=== PATIENT | male | born 1970 | race Caucasian/White ===

== ENCOUNTER 2017-07-24 11:42 | Emergency (ER) | payer BC ==
[~2017-07-24] VITALS: Ht 182.9 cm; Wt 84.5 kg
--- NOTE | 2017-07-24 11:55 | EKG ---
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
[2017-07-24 12:19] LABS: BASO # 0.1 x10^3/uL (0.0-0.2); BASO % 1 % (0-3); EOS # 0.2 x10^3/uL (0.0-0.7); EOS % 3 % (0-3); HEMATOCRIT 44.4 % (39.0-53.0); HEMOGLOBIN 15.3 g/dL (13.0-17.5); LYMPH # 1.9 x10^3/uL (1.0-4.8); LYMPH % 20 % (24-48); MEAN CORPUSCULAR HEMOGLOBIN 32 pg (25-35); MEAN CORPUSCULAR HGB CONC 35 g/dL (31-37); MEAN CORPUSCULAR VOLUME 92 fL (79-100); MONO # 0.7 x10^3/uL (0.0-1.1); MONO % 7 % (0-9); NEUT # 6.7 x10^3uL (1.8-7.7); NEUT % 70 % (31-73); PLATELET COUNT 207 x10^3/uL (140-400); RED BLOOD COUNT 4.81 x10^6/uL (4.30-5.70); RED CELL DISTRIBUTION WIDTH 13.6 % (11.5-14.5); WHITE BLOOD COUNT 9.6 x10^3/uL (4.0-11.0)
--- NOTE | 2017-07-24 12:20 | RAD ---
PA and lateral chest radiographs 07/24/2017 CLINICAL HISTORY: Shortness of breath. Asthma. Two PA and lateral digital radiographs of the chest were obtained. Comparison study is dated 02/08/2010. The cardiac and mediastinal silhouettes are within normal limits in size and configuration. No acute pulmonary infiltrate is seen. No pleural effusion or pneumothorax is noted. The osseous structures are grossly intact. IMPRESSION: No acute abnormality is seen. Electronically signed by: Florentino Herman MD (07/24/2017 12:17 PM) [facility]
[2017-07-24 12:40] LABS: ALBUMIN/GLOBULIN RATIO 1.1 (1.0-1.7); CALCIUM 9.2 mg/dL (8.5-10.1); CREATININE 0.9 mg/dL (0.7-1.3); GFR 90.8; MAGNESIUM 1.8 mg/dL (1.8-2.4); POTASSIUM 3.5 mmol/L (3.5-5.1); TOTAL BILIRUBIN 0.5 mg/dL (0.2-1.0); TOTAL PROTEIN 7.6 g/dL (6.4-8.2)
[2017-07-24] MEDS ORDERED: IOHEXOL 300 MG/ML 75 ML VIAL. IV ONE (12:45)
[2017-07-24] MEDS ORDERED: ASPIRIN 81 MG TAB.CHEW PO ONE (12:45)
--- NOTE | 2017-07-24 13:19 | RAD ---
CTA scan of the Chest with Contrast (Pulmonary Embolism protocol) 07/24/2017 Clinical History: Shortness of breath. Technique: After the intravenous administration of 75 cc of Isovue-370, contiguous, 0.625 mm axial sections were obtained through the chest. 2 mm axial and 3D MIP coronal and sagittal reconstructed images were obtained. One or more of the following individualized dose reduction techniques were utilized for this study: 1. Automated exposure control. 2. Adjustment of the mA and/or kV according to patient size. 3. Use of iterative reconstruction technique. Findings: Comparison is made to the patient's PA and lateral chest radiographs performed earlier today. Multiple branching filling defects are seen throughout the branches of the right main pulmonary artery consistent with pulmonary emboli. The heart is mildly enlarged. The thoracic aorta tapers normally. Dependent subsegmental atelectasis is seen involving both lungs. Areas of pleural thickening are seen scattered throughout the left lung. Areas of scarring and/or atelectasis are seen involving the left upper lobe and left lower lobe. No pneumothorax is seen. IMPRESSION: Multiple filling defects are seen throughout the branches of the right main pulmonary artery consistent with pulmonary emboli. These findings were discussed with Dr. Salcido at 1315 hours. Electronically signed by: Florentino Herman MD (07/24/2017 1:15 PM) [facility]
[2017-07-24] MEDS ORDERED: ENOXAPARIN ** NOTE DOSE ** SYRINGE SQ ONE (13:30)
[2017-07-24] MEDS ORDERED: ENOX40DI SQ (13:34)
--- NOTE | 2017-07-24 13:34 | PHYS DOC ---
Past History Past Medical History: No Pertinent History Past Surgical History: No Surgical History Smoking: Non-smoker Alcohol Use: None Drug Use: None Adult General Chief Complaint Chief Complaint: ABNORMAL LABS HPI HPI 47-year-old male patient states he had left leg swelling for 2 weeks with mild discomfort feeling in his leg without actual pain. Patient states he has had episodes of exertional shortness of breath for one week and was seen by his primary care physician's office today and had abnormal labs including elevation of troponin and seen to ER for evaluation. Patient denies chest pain, cough, history of DVT and PE sent immobilization. Patient stated was sitting down for about 2 weeks that his job that not his usual work. Review of Systems Review of Systems Constitutional: Denies fever or chills [] Eyes: Denies change in visual acuity, redness, or eye pain [] HENT: Denies nasal congestion or sore throat [] Respiratory: Denies cough, reports shortness of breath [] Cardiovascular: No additional information not addressed in HPI [] GI: Denies abdominal pain, nausea, vomiting, bloody stools or diarrhea [] : Denies dysuria or hematuria [] Musculoskeletal: Denies back pain or joint pain [] Integument: Denies rash or skin lesions [] Neurologic: Denies headache, focal weakness or sensory changes [] Endocrine: Denies polyuria or polydipsia [] All other systems were reviewed and found to be within normal limits, except as documented in this note. Current Medications Current Medications Current Medications Medications (Trade) Dose Ordered Sig/Brooke Start Time Stop Time Status Last Admin Dose Admin Aspirin (Children'S Aspirin) 324 mg 1X ONCE 07/24/17 12:45 07/24/17 12:46 DC 07/24/17 12:42 324 MG Enoxaparin Sodium (Lovenox 80mg Syringe) 80 mg 1X ONCE 07/24/17 13:30 07/24/17 13:31 DC Iohexol (Omnipaque 300 Mg/ml) 75 ml 1X ONCE 07/24/17 12:45 07/24/17 12:46 DC Allergies Allergies Allergies Coded Allergies Type Severity Reaction Last Updated Verified No Known Drug Allergies 07/24/17 No Physical Exam Physical Exam Constitutional: Well developed, well nourished, no acute distress, non-toxic appearance. [] HENT: Normocephalic, atraumatic, oropharynx moist, no oral exudates, nose normal. [] Eyes: PERRLA, EOMI, conjunctiva normal, no discharge. [] Neck: Normal range of motion, no tenderness, supple, no stridor. [] Cardiovascular:Heart rate regular rhythm, no murmur [] Lungs & Thorax: Bilateral breath sounds clear to auscultation [] Abdomen: Bowel sounds normal, soft, no tenderness, no masses, no pulsatile masses. [] Skin: Warm, dry, no erythema, no rash. [] Back: No tenderness, no CVA tenderness. [] Extremities: No tenderness, no cyanosis, no clubbing, ROM intact, left lower extremity 2+ edema without tenderness or erythema or sign of infection[] Neurologic: Alert and oriented X 3, normal motor function, normal sensory function, no focal deficits noted. [] Psychologic: Affect normal, judgement normal, mood normal. [] Current Patient Data Vital Signs Vital Signs Date Time Temp Pulse Resp B/P (MAP) Pulse Ox O2 Delivery O2 Flow Rate FiO2 07/24/17 12:46 64 16 155/94 (114) 97 Room Air 07/24/17 11:45 98.2 Lab Results Laboratory Tests Test 07/24/17 11:49 07/24/17 11:53 White Blood Count 9.6 x10^3/uL (4.0-11.0) Red Blood Count 4.81 x10^6/uL (4.30-5.70) Hemoglobin 15.3 g/dL (13.0-17.5) Hematocrit 44.4 % (39.0-53.0) Mean Corpuscular Volume 92 fL (79-100) Mean Corpuscular Hemoglobin 32 pg (25-35) Mean Corpuscular Hemoglobin Concent 35 g/dL (31-37) Red Cell Distribution Width 13.6 % (11.5-14.5) Platelet Count 207 x10^3/uL (140-400) Neutrophils (%) (Auto) 70 % (31-73) Lymphocytes (%) (Auto) 20 % (24-48) L Monocytes (%) (Auto) 7 % (0-9) Eosinophils (%) (Auto) 3 % (0-3) Basophils (%) (Auto) 1 % (0-3) Neutrophils # (Auto) 6.7 x10^3uL (1.8-7.7) Lymphocytes # (Auto) 1.9 x10^3/uL (1.0-4.8) Monocytes # (Auto) 0.7 x10^3/uL (0.0-1.1) Eosinophils # (Auto) 0.2 x10^3/uL (0.0-0.7) Basophils # (Auto) 0.1 x10^3/uL (0.0-0.2) Prothrombin Time 10.4 SEC (9.4-11.4) Prothrombin Time INR 1.0 (0.9-1.1) D-Dimer (Tammy) 4.38 mg/L (0.00-0.50) H Sodium Level 139 mmol/L (136-145) Potassium Level 3.5 mmol/L (3.5-5.1) Chloride Level 102 mmol/L (98-107) Carbon Dioxide Level 27 mmol/L (21-32) Anion Gap 10 (6-14) Blood Urea Nitrogen 12 mg/dL (8-26) Creatinine 0.9 mg/dL (0.7-1.3) Estimated GFR (Cockcroft-Gault) 90.8 BUN/Creatinine Ratio 13 (6-20) Glucose Level 82 mg/dL (70-99) Calcium Level 9.2 mg/dL (8.5-10.1) Magnesium Level 1.8 mg/dL (1.8-2.4) Total Bilirubin 0.5 mg/dL (0.2-1.0) Aspartate Amino Transferase (AST) 24 U/L (15-37) Alanine Aminotransferase (ALT) 34 U/L (16-63) Alkaline Phosphatase 86 U/L (46-116) Creatine Kinase 102 U/L (39-308) Creatine Kinase MB (Mass) 1.1 ng/mL (0.0-3.6) Creatine Kinase MB Relative Index 1.1 % (0-4) Troponin I Quantitative 0.142 ng/mL (0-0.055) H UN-Uqj-W-Type Natriuretic Peptide 118 pg/mL (0-124) Total Protein 7.6 g/dL (6.4-8.2) Albumin 4.0 g/dL (3.4-5.0) Albumin/Globulin Ratio 1.1 (1.0-1.7) POC Troponin I 0.04 ng/ml (<0.08) EKG EKG EKG interpreted by me. EKG at 1150 showed normal sinus rhythm at rate of 68, criteria for LVH, no acute ST and T wave abnormality, poor R-wave progress in anteroseptal leads[] Radiology/Procedures Radiology/Procedures [][address] [address] IMAGING REPORT Signed PATIENT: AMIRA PATTEN ACCOUNT: [id number] : 1970 LOCATION: ER AGE: 47 SEX: M EXAM STATUS: REG ER ORD. PHYSICIAN: DIMITRY AVILES MD REASON: PE evaluation PROCEDURE: CT ANGIOGRAPHY CHEST CTA scan of the Chest with Contrast (Pulmonary Embolism protocol) 07/24/2017 Clinical History: Shortness of breath. Technique: After the intravenous administration of 75 cc of Isovue-370, contiguous, 0.625 mm axial sections were obtained through the chest. 2 mm axial and 3D MIP coronal and sagittal reconstructed images were obtained. One or more of the following individualized dose reduction techniques were utilized for this study: 1. Automated exposure control. 2. Adjustment of the mA and/or kV according to patient size. 3. Use of iterative reconstruction technique. Findings: Comparison is made to the patient's PA and lateral chest radiographs performed earlier today. Multiple branching filling defects are seen throughout the branches of the right main pulmonary artery consistent with pulmonary emboli. The heart is mildly enlarged. The thoracic aorta tapers normally. Dependent subsegmental atelectasis is seen involving both lungs. Areas of pleural thickening are seen scattered throughout the left lung. Areas of scarring and/or atelectasis are seen involving the left upper lobe and left lower lobe. No pneumothorax is seen. IMPRESSION: Multiple filling defects are seen throughout the branches of the right main pulmonary artery consistent with pulmonary emboli. These findings were discussed with Dr. Aviles at 1315 hours. Electronically signed by: Florentino Herman MD (07/24/2017 1:15 PM) [address] [address] IMAGING REPORT Signed PATIENT: AMIRA PATTEN ACCOUNT: [id number] : 1970 LOCATION: ER AGE: 47 SEX: M EXAM STATUS: REG ER ORD. PHYSICIAN: DIMITRY AVILES MD REASON: sob PROCEDURE: CHEST PA & LATERAL PA and lateral chest radiographs 07/24/2017 CLINICAL HISTORY: Shortness of breath. Asthma. Two PA and lateral digital radiographs of the chest were obtained. Comparison study is dated 02/08/2010. The cardiac and mediastinal silhouettes are within normal limits in size and configuration. No acute pulmonary infiltrate is seen. No pleural effusion or pneumothorax is noted. The osseous structures are grossly intact. IMPRESSION: No acute abnormality is seen. Electronically signed by: Florentino Herman MD (07/24/2017 12:17 PM) [facility] DICTATED AND SIGNED BY: FLORENTINO HERMAN MD DATE: 07/24/17 1216 CC: PRAVEENA KUMAR MD; DIMITRY AVILES MD ~ Course & Med Decision Making Course & Med Decision Making Pertinent Labs and Imaging studies reviewed. (See chart for details) Evaluation of patient in ER showed 47-year-old male patient with complaining of lower extremity edema for 2 weeks and shortness of breath for one week and abnormal troponin at primary care office today. Patient had unremarkable physical exam except for left leg 2+ edema. Labs showed elevation of d-dimer and mild elevation of troponin. Elevation of troponin was related to PE and acute cardiac event was not a concern.. CT chest showed PE and patient treated with Lovenox in ER. Dr. Kumar informed at 1326 and agreed with plan of discharge patient with prescription of Lovenox and he plans to give prescription for Eliquis. Dragon Disclaimer Dragon Disclaimer This electronic medical record was generated, in whole or in part, using a voice recognition dictation system. Departure Departure: Impression: Primary Impression: Pulmonary embolism Additional Impressions: Lower extremity edema Elevated troponin Disposition: HOME, SELF-CARE (aT 1345) Condition: STABLE Referrals: PRAVEENA KUMAR MD (PCP) Patient Instructions: Pulmonary Embolus Additional Instructions: Take Lovenox shots for 5 days Follow-up with your primary care physician in 3-5 days Return to ER if not getting better Scripts Enoxaparin Sodium (LOVENOX) 40 Mg/0.4 Ml Disp.syrin 80 MG SQ DAILY for 5 Days, DIS.SYR Prov: DIMITRY AVILES MD 07/24/17 Problem Qualifiers DIMITRY AVILES MD July 24, 2017 13:34
[2017-07-24 13:50] VITALS: BP 155/92
== END 2017-07-24 14:02 | disposition home or self-care (01) ==
LOC: ER 11:42
DX: I26.99 Other pulmonary embolism without acute cor pulmonale (principal); R60.0 Localized edema; R79.89 Other specified abnormal findings of blood chemistry; Z86.718 Personal history of other venous thrombosis and embolism
CPT/HCPCS: 36415; 71046; 71275; 80053; 82553; 83735; 83880; 84484; 85025; 85379; 85610; 93005; 96372; 99285; J1650

== ENCOUNTER → 2017-07-24 | Outpatient (CLI) | payer BC ==
[~2017-07-24] MED LIST: ENOX40DI SQ
[2017-07-24 09:59] LABS: BASO # 0.1 x10^3/uL (0.0-0.2); BASO % 1 % (0-3); EOS # 0.2 x10^3/uL (0.0-0.7); EOS % 2 % (0-3); HEMATOCRIT 44.6 % (39.0-53.0); HEMOGLOBIN 15.5 g/dL (13.0-17.5); LYMPH # 1.5 x10^3/uL (1.0-4.8); LYMPH % 15 % (24-48); MEAN CORPUSCULAR HEMOGLOBIN 32 pg (25-35); MEAN CORPUSCULAR HGB CONC 35 g/dL (31-37); MEAN CORPUSCULAR VOLUME 92 fL (79-100); MONO # 0.7 x10^3/uL (0.0-1.1); MONO % 7 % (0-9); NEUT # 7.5 x10^3uL (1.8-7.7); NEUT % 75 % (31-73); PLATELET COUNT 216 x10^3/uL (140-400); RED BLOOD COUNT 4.85 x10^6/uL (4.30-5.70); RED CELL DISTRIBUTION WIDTH 13.7 % (11.5-14.5); WHITE BLOOD COUNT 10.1 x10^3/uL (4.0-11.0)
[2017-07-24 10:59] LABS: ALBUMIN 3.9 g/dL (3.4-5.0); ALBUMIN/GLOBULIN RATIO 1.1 (1.0-1.7); CALCIUM 9.4 mg/dL (8.5-10.1); CREATININE 0.9 mg/dL (0.7-1.3); GFR 90.8; POTASSIUM 3.7 mmol/L (3.5-5.1); TOTAL BILIRUBIN 0.5 mg/dL (0.2-1.0); TOTAL PROTEIN 7.6 g/dL (6.4-8.2)
== END | disposition home or self-care (01) ==
LOC: LAB 09:36
PROVIDERS: ATTEND Physician Assistant
DX: J45.998 Other asthma (principal); R07.89 Other chest pain; R60.0 Localized edema
CPT/HCPCS: 36415; 80053; 82550; 83880; 84484; 85025; 85379

== ENCOUNTER → 2017-07-29 | Outpatient (CLI) | payer BC ==
[2017-07-24 13:50] VITALS: BP 155/92
--- NOTE | 2017-07-29 15:17 | RAD ---
Bilateral lower extremity venous duplex study 07/29/2017 1:38 PM Clinical History: History of pulmonary embolism. Lt ankle swelling 3 weeks ago shortness of air 1 week ago. Patient currently on anticoagulation. Comparison: None available Technique: Using a combination of real time ultrasound imaging and color-flow and pulse Doppler imaging techniques along with graded compression and augmentation, duplex evaluation of the deep venous system of the both lower extremities was performed. Multiple images were obtained. Findings: There is no sonographic evidence of deep venous thrombosis involving the visualized deep venous structures of the right lower extremity. Nonocclusive thrombus appears to be present in the left peroneal veins, below the knee. Remaining deep veins of the left lower extremity are patent. Impression: Nonocclusive thrombus in the left peroneal vein. Electronically signed by: Boris Jasmine MD (07/29/2017 3:14 PM) [id number]
== END | disposition home or self-care (01) ==
LOC: US 13:09
PROVIDERS: ATTEND Family Medicine
DX: I26.99 Other pulmonary embolism without acute cor pulmonale (principal); M79.89 Other specified soft tissue disorders; Z86.711 Personal history of pulmonary embolism
CPT/HCPCS: 93970

== ENCOUNTER → 2017-08-13 | Outpatient (CLI) | payer BC, OTHER ==
[2017-07-24 13:50] VITALS: BP 155/92
--- NOTE | 2017-08-13 16:24 | RAD ---
History: Twisted ankle 2 days ago, pain. Comparison: None. Findings: AP and lateral views of the left ankle. Evaluation for acute traumatic injury is limited by lack of 3rd view. No acute fracture or dislocation is identified. Lateral ankle soft tissue swelling is seen. Impression: 1. Lateral ankle soft tissue swelling. 2. No definite acute osseous traumatic injury identified. Electronically signed by: Arik Pollock MD (08/13/2017 4:20 PM) [facility]
== END | disposition home or self-care (01) ==
LOC: PMG 15:19
PROVIDERS: ATTEND Physician Assistant
DX: M79.89 Other specified soft tissue disorders (principal)
CPT/HCPCS: 73600

== ENCOUNTER → 2018-01-14 | Outpatient (CLI) | payer BC ==
[2018-01-14] MEDS: IOHEXOL 300 MG/ML 75 ML VIAL. IV ONE (11:16)
--- NOTE | 2018-01-14 11:44 | RAD ---
Examination: CT angiography chest History of history six-month follow-up for pulmonary embolism COMPARISON: 07/24/2017 TECHNIQUE: Axial CT angiography images were performed with IV contrast. Coronal and sagittal 3-D MIP reformats are performed Exposure: One or more of the following individualized dose reduction techniques were utilized for this examination: 1. Automated exposure control 2. Adjustment of the mA and/or kV according to patient size 3. Use of iterative reconstruction technique FINDINGS: The central airways are patent. Heart size grossly appears unremarkable. The caliber of the aorta appears unremarkable. There is no evidence of filling defect identified in the main pulmonary artery trunk and right and left main pulmonary arteries. The previously visualized filling defect in the right lower lobe pulmonary arterial branches have resolved. Foci of pleural thickening identified in the anterior left upper lobe and in the left lower lobe of the lungs similar to prior exam. No evidence of pleural effusion or pneumothorax. The visualized liver, spleen, adrenals grossly appears unremarkable. No evidence of lytic bony destructive lesion. IMPRESSION: 1. The previously visualized filling defect identified in the right lower lobe pulmonary arterial branches have resolved. No evidence of pulmonary embolism identified. 2. Foci of scarring or atelectasis or pleural thickening involving the left upper lobe and left lower lobe of the lungs similar to prior exam. Electronically signed by: Baljit Acevedo MD (01/14/2018 11:41 AM) [place] [id number]
== END | disposition home or self-care (01) ==
LOC: CT 10:59
PROVIDERS: ATTEND Nurse Practitioner Adult Health
DX: I26.99 Other pulmonary embolism without acute cor pulmonale (principal)
CPT/HCPCS: 71275; Q9967

== ENCOUNTER 2019-01-19 17:40 | Inpatient (IN) | payer BC ==
[~2019-01-19] VITALS: Ht 182.9 cm; Wt 81.6 kg
[~2019-01-19 17:40] MED LIST changes: -AMOX500C PO; -APIX5TAB3 PO; -IOHEXOL 350 MG/ML 100 ML VIAL. IV ONE; -LACT1CAP29 PO; -LOSA50TA14 PO; -MULT-735 PO
[2019-01-19] MEDS ORDERED: HEPARIN 25,000UTS/500ML PREMIX 500 ML IV PRN ×2 (18:00→18:15)
[2019-01-19] MEDS ORDERED: HEPARIN for IV BOLUS 10,000 UNIT/10 ML VIAL. IV ONE (18:15)
[2019-01-19] MEDS ORDERED: HEPARIN for IV BOLUS 10,000 UNIT/10 ML VIAL. IV PRN ×2 (18:15)
[2019-01-19] MEDS ORDERED: LOSA50TA14 PO (18:18)
[2019-01-19] MEDS ORDERED: LACT1CAP29 PO (18:18)
[2019-01-19] MEDS ORDERED: AMOX500C PO (18:18)
[2019-01-19] MEDS ORDERED: MULT-735 PO (18:18)
--- NOTE | 2019-01-19 18:20 | NUR ---
NSG NOTE; ADMISSION DIRECT ADMIT TO ICU 1 FROM RADIOLOGY WHEN HE WAS DIAGNOSED WITH RIGHT LEG DVT AND RIGHT LUNG PE. PT HAS HISTORY OF BOTH
[2019-01-19 18:36] LABS: BASO # 0.1 x10^3/uL (0.0-0.2); BASO % 1 % (0-3); EOS # 0.3 x10^3/uL (0.0-0.7); EOS % 3 % (0-3); HEMATOCRIT 43.4 % (39.0-53.0); HEMOGLOBIN 14.6 g/dL (13.0-17.5); LYMPH # 1.7 x10^3/uL (1.0-4.8); LYMPH % 17 % (24-48); MEAN CORPUSCULAR HEMOGLOBIN 31 pg (25-35); MEAN CORPUSCULAR HGB CONC 34 g/dL (31-37); MEAN CORPUSCULAR VOLUME 92 fL (79-100); MONO # 0.8 x10^3/uL (0.0-1.1); MONO % 8 % (0-9); NEUT # 7.2 x10^3uL (1.8-7.7); NEUT % 72 % (31-73); PLATELET COUNT 213 x10^3/uL (140-400); RED BLOOD COUNT 4.73 x10^6/uL (4.30-5.70); RED CELL DISTRIBUTION WIDTH 12.9 % (11.5-14.5); WHITE BLOOD COUNT 10.1 x10^3/uL (4.0-11.0)
[2019-01-19 18:51] LABS: ALBUMIN 3.5 g/dL (3.4-5.0); ALBUMIN/GLOBULIN RATIO 0.9 (1.0-1.7); CREATININE 0.9 mg/dL (0.7-1.3); GFR 90.1; POTASSIUM 3.6 mmol/L (3.5-5.1); TOTAL BILIRUBIN 0.6 mg/dL (0.2-1.0); TOTAL PROTEIN 7.5 g/dL (6.4-8.2)
[2019-01-19 19:00] VITALS: BP 144/92
[2019-01-19 20:00] VITALS: BP 121/73
--- NOTE | 2019-01-19 20:00 | NUR ---
Ricardo Henriquez a 49y/o male was admitted to ICU-1, ICU status, Dr. Mcclain, DX: RLE DVT, Rt Lung PE. Pt states he had a LLE DVT and PE approximately 13 months ago. He was placed on Eliquis, which was discontinued about 2 months ago. Pt states he noticed his right lower leg hurting when he walked, red and warm to the touch. He also states he has shortness of breath, which he thought was from his recent sinusitis. Reviewed poc with pt and , Ying. Pt to be placed on Heparin drip per protocol. Explained the need for frequent blood draws for dosing. Pt was provided written copies of hospital and unit policies and procedures. Admission assessment completed, pt connected to monitors. Will continue to monitor pt.
[2019-01-19 21:00] VITALS: BP 103/60
[2019-01-19 22:00] VITALS: BP 106/69
[2019-01-19] MEDS: LACTOBACILLUS RHAMNOSUS GG 1 CAPSULE. PO SCH (22:03)
[2019-01-19] MEDS: AMOXICILLIN 250 MG CAPSULE PO SCH (22:03)
[2019-01-19 23:00] VITALS: BP 99/61
[2019-01-20] VITALS (12 sets, daily range): BP systolic 102–127; BP diastolic 58–80
[2019-01-20] MEDS: LACTOBACILLUS RHAMNOSUS GG 1 CAPSULE. PO SCH (08:01)
[2019-01-20] MEDS: AMOXICILLIN 250 MG CAPSULE PO SCH (08:01)
[2019-01-20] MEDS: LOSARTAN 50 MG TABLET. PO SCH ×2 (08:02→08:36)
--- NOTE | 2019-01-20 08:36 | NUR ---
Pt reports talking his own bp medication last night and refusing dose today. 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 Explained the importance of patient not taking his own medications. PT is able to verbalize understanding of poc. Margie SUAREZ
[2019-01-20] MEDS ORDERED: MULTIVITAMIN with MINERAL TABLET. PO SCH (09:00)
[2019-01-20] MEDS ORDERED: FLU VAX QS 2019-20 (36MOS+)/PF 0.5 ML SYRINGE. VAX IM ONE (09:00)
[2019-01-20] MEDS ORDERED: APIXABAN 5 MG TABLET. PO SCH (11:30)
[2019-01-20] MEDS ORDERED: APIX5TAB3 PO (13:45)
--- NOTE | 2019-01-20 14:21 | NUR ---
pt dc to home . Pt is able to verbalize understanding of discharge instructions and medications. Pt is to take eliquis 10 mg po BID for 7 days and has eliquis at home. Pt is then to start 5 mg po BID. Pt will also finish the amoxicillin at home. PT ambulatory and left via private vehicle. Margie SUAREZ
--- NOTE | 2019-01-21 02:33 | DS ---
DATE OF DISCHARGE: 01/20/2019 HOSPITAL COURSE: This is a pleasant 49-year-old male with bilateral problems with pulmonary emboli. He also had a fresh clot in his lower leg, and as a result of this, the patient was admitted for IV heparinization to calm down the inflammation as well as the pain in that limb. The patient otherwise had some pulmonary nodules that required ____ pulmonary emboli. I will repeat the CT scan in 3 months. Otherwise, the patient did remarkably well. He was placed over on Eliquis. His last blood pressure was 113/70, respiratory rate ____, pulse 70, afebrile. The patient otherwise made good progress during the rest of his hospitalization and was discharged home for followup accordingly. He will be on a heart healthy diet and Eliquis. See MRAD. IMPRESSION: Pulmonary emboli, deep venous thrombosis, pulmonary nodules. PRAVEENA KUMAR MD DR: ADORE/andrae JOB#: [id number] / [id number]
== END 2019-01-20 14:29 | disposition home or self-care (01) | DRG 299 ==
LOC: INTOOBSV 17:40 → ICU 17:40 → OBSVTOIN 17:40
PROVIDERS: ADMIT Family Medicine; ATTEND Family Medicine
DX: I82.401 Acute embolism and thrombosis of unspecified deep veins of right lower extremity (principal); I26.99 Other pulmonary embolism without acute cor pulmonale
CPT/HCPCS: 36415; 80053; 85025; 85049; 85610; 85730; 90471; 90686; J1644

== ENCOUNTER → 2019-01-19 | Outpatient (CLI) | payer BC ==
[~2019-01-19] MED LIST changes: +AMOX500C PO; +APIX5TAB3 PO; +IOHEXOL 350 MG/ML 100 ML VIAL. IV ONE; +LACT1CAP29 PO; +LOSA50TA14 PO; +MULT-735 PO
--- NOTE | 2019-01-19 15:10 | RAD ---
Right Leg Venous Doppler Ultrasound compared to similar examination dated 07/29/2017 Indication: Right leg pain, history of DVT in the left leg, history of PE Comparison: Ultrasound dated 07/29/2017 Procedure: Color flow, duplex and 2D images are obtained with and without compression in the area of the common femoral vein, superficial femoral vein - femoral vein junction, main femoral vein (superficial femoral vein) and popliteal vein. Veins of the proximal calf are also imaged. Findings: The right common femoral, deep femoral, and superficial femoral veins are patent and augmentable. There is occlusive echogenic thrombus within the right popliteal vein, extending distally into the posterior tibial and peroneal veins. This was not present on the prior examination. Impression: Occlusive thrombus involving the right popliteal, posterior tibial and peroneal veins, not present on the prior examination from July 2017. FOR INTERNAL CODING PURPOSES RESULT CODE: c Findings were discussed with Teagan Chni at Dr. Juárez's office immediately upon interpretation of the examination. Electronically signed by: Jorge Alberto Franklin MD (01/19/2019 3:07 PM) [id number]
--- NOTE | 2019-01-19 17:14 | RAD ---
Chest CTA History: DVT, chest pain Technique: After bolus of intravenous contrast, CT imaging was performed of the chest. Multiplanar reconstruction images to include MIP reconstruction images are submitted. Exposure: One or more of the following individualized dose reduction techniques were utilized for this examination: 1. Automated exposure control 2. Adjustment of the mA and/or kV according to patient size 3. Use of iterative reconstruction technique. Comparison: January 14, 2018 Findings: There is a large embolism in the right lower lobe artery branches, small focus in the right upper lobe. There is again peripheral parenchymal density of the left upper lobe abutting the pleural surface appearance of the spleen may be seen with round atelectasis. There is also left lower lobe parenchymal density extending to the pleural surface also present previously. There is no pneumothorax. There is no new significant pericardial effusion or right pleural fluid. There is again trace left pleural fluid. Thoracic aortic caliber is within normal limits without dissection flap. There is mild groundglass density of the right lower lobe. There is again right lower lobe nodule image 113 series 5 about 0.8 cm, similar. There is new right lower lobe nodule about 0.8 cm image 108 series 5. There is new 0.7 cm nodule right lower lobe image 112. There are again some subcentimeter mediastinal nodes. Mild patchy parenchymal density of the left upper lobe closer to the apex is similar. Impression: 1. There are right pulmonary emboli. 2. There are some new right lower lobe pulmonary nodules for which follow-up in 3 months advised as per revised Fleischner guidelines. Parenchymal density of the left hemithorax is similar. Critical results were discussed with Dr. Juárez at 01/19/2019 5:10 PM. Electronically signed by: Ricardo Abdul MD (01/19/2019 5:11 PM) [id number]
== END | disposition home or self-care (01) ==
LOC: US 14:18
PROVIDERS: ATTEND Family Medicine
DX: I82.431 Acute embolism and thrombosis of right popliteal vein (principal); I26.99 Other pulmonary embolism without acute cor pulmonale; R91.1 Solitary pulmonary nodule
CPT/HCPCS: 36415; 71275; 93971; Q9967

== ENCOUNTER → 2019-06-15 | Outpatient (CLI) | payer BC ==
[2019-01-20 11:26] VITALS: BP 113/68
[~2019-06-15] MED LIST changes: +AMOX500C PO; +APIX5TAB3 PO; +LACT1CAP29 PO; +LOSA50TA14 PO; +MULT-735 PO
--- NOTE | 2019-06-15 11:21 | RAD ---
EXAM: Paranasal sinuses, 3 views. HISTORY: Congestion. COMPARISON: None. FINDINGS: 3 views of the sinuses are obtained. There is no sinus opacification or air-fluid level. There is mild leftward nasal septal deviation. There is incidental dental amalgam. IMPRESSION: No convincing radiographic evidence of sinusitis. Electronically signed by: Yareli Muro MD (06/15/2019 11:18 AM) [facility]
== END | disposition home or self-care (01) ==
LOC: DXRAD 10:47
PROVIDERS: ATTEND Family Medicine
DX: J34.2 Deviated nasal septum (principal); J32.4 Chronic pansinusitis; J30.9 Allergic rhinitis, unspecified
CPT/HCPCS: 70210

== ENCOUNTER → 2019-09-29 | Outpatient (CLI) | payer BC ==
[2019-01-20 11:26] VITALS: BP 113/68
--- NOTE | 2019-09-29 11:14 | RAD ---
VENOUS LOWER EXTREMITY LEFT History: Reason: LLE PAIN AND TIGHTNESS, HX OF DVT / Spl. Instructions: PT ON BLOOD THINNERS / History: Comparison: None. Discussion: Multiple longitudinal and transverse high resolution real-time images of the venous system of left lower extremity were obtained with color and Doppler sampling. The common femoral, superficial femoral, popliteal and proximal calf veins are all patent and demonstrate normal flow and compressibility. Normal respiratory phasicity and augmentation is present. Impression: 1. No evidence of deep vein thrombosis. Electronically signed by: Js Rodriguez DO (09/29/2019 11:11 AM) [id number]
== END ==
LOC: US 10:11
PROVIDERS: ATTEND Family Medicine
DX: I82.401 Acute embolism and thrombosis of unspecified deep veins of right lower extremity (principal); I82.402 Acute embolism and thrombosis of unspecified deep veins of left lower extremity
CPT/HCPCS: 93971

== ENCOUNTER → 2020-06-03 | Outpatient (CLI) | payer BC ==
[2019-01-20 11:26] VITALS: BP 113/68
--- NOTE | 2020-06-03 09:59 | RAD ---
Examination: Right Lower Extremity Venous Doppler Ultrasound History: Right lower extremity pain Comparison: None Procedure: Jimenez scale, color flow 2D and spectal waveform analysis images are obtained with and witho ut compression in the area of the common femoral vein, superficial femoral vein - femoral vein juncti on, main femoral vein (superficial femoral vein) and popliteal vein. Veins of the proximal calf are a lso imaged. Findings: There is normal duplex flow, color flow and compressibility of all visualized vein segments. No evide nce of deep venous thrombus is present. Impression: No evidence of DVT in the right lower extremity venous system. Electronically signed by: Baljit Acevedo MD (06/03/2020 9:56 AM) [id number]
== END ==
LOC: US 08:20
PROVIDERS: ATTEND Family Medicine
DX: I82.401 Acute embolism and thrombosis of unspecified deep veins of right lower extremity (principal)
CPT/HCPCS: 93971